=== PATIENT | female | born 1945 | race Caucasian/White ===

== ENCOUNTER 2018-05-26 13:27 | Inpatient (IN) | payer MEDICARE, OTHER, MEDICAID ==
[2018-05-26 14:02] LABS: ADD MAN DIFF? NO
[2018-05-26 14:07] LABS: WHITE BLOOD COUNT 14.8 10^3/ul (4.8-10.8)
[2018-05-26 14:07] LABS: BASOPHIL # 0.1 10^3/ul (0.0-0.1); BASOPHILS % 0.3 % (0.0-2.0); EOSINOPHILS % 0.1 % (0.0-7.0); HEMATOCRIT 45.9 % (37.0-47.0); HEMOGLOBIN 14.9 g/dl (12.0-16.0); LYMPHOCYTES % 6.7 % (15.0-51.0); MEAN CORPUSCULAR HEMOGLOBIN 29.4 pg (29.0-33.0); MEAN CORPUSCULAR HGB CONC 32.5 g/dl (32.0-37.0); MEAN CORPUSCULAR VOLUME 90.7 fl (82.0-101.0); MEAN PLATELET VOLUME 11.3 fl (7.4-10.4); MONOCYTE # 1.1 10^3/ul (0.3-0.9); MONOCYTES % 7.2 % (0.0-11.0); NEUTROPHIL # 12.6 10^3/ul (1.6-7.5); NEUTROPHILS % 85.3 % (39.0-77.0); PLATELET COUNT 419 10^3/UL (140-415); RED BLOOD COUNT 5.06 10^6/ul (4.20-5.40); RED CELL DISTRIBUTION WIDTH 17.5 % (11.5-14.5)
[2018-05-26] MEDS: ACETAMINOPHEN 650 MG SUPP PR (14:14)
[2018-05-26] MEDS: SODIUM CHLORIDE 0.9% 1L BAG IV* (14:14)
[2018-05-26 14:26] LABS: INR 1.11; PROTIME 14.5 Sec (11.9-14.9); PT RATIO 1.1
[2018-05-26 14:38] LABS: CREATINE KINASE 217 IU/L (23-200)
[2018-05-26 14:45] LABS: LACTIC ACID 2.6 mmol/L (0.5-2.0)
[2018-05-26 14:46] LABS: ETHANOL < 10.0 mg/dl; SALICYLATE < 1.0 mg/dl (5.0-30.0)
[2018-05-26 14:49] LABS: TROPONIN-I 0.017 ng/ml (0.000-0.120)
[2018-05-26 14:54] LABS: ALANINE AMINOTRANSFERASE 20 IU/L (13-69); ALBUMIN 5.2 g/dl (3.3-4.9); ALBUMIN/GLOBULIN RATIO 1.26; ALKALINE PHOSPHATASE 94 IU/L (42-121); ANION GAP 34 (8-16); ASPARTATE AMINO TRANSFERASE 22 IU/L (15-46); BILIRUBIN,INDIRECT 0.5 mg/dl (0-1.1); BILIRUBIN,TOTAL 0.5 mg/dl (0.2-1.3); BLOOD UREA NITROGEN 84 mg/dl (7-20); CALCIUM 9.3 mg/dl (8.4-10.2); CARBON DIOXIDE 10 mmol/L (21-31); CHLORIDE 105 mmol/L (97-110); CREATININE 12.42 mg/dl (0.44-1.00); GLUCOSE 202 mg/dl (70-220); SODIUM 143 mmol/L (135-144); TOTAL PROTEIN 9.3 g/dl (6.1-8.1)
[2018-05-26 14:59] LABS: POTASSIUM 5.7 mmol/L (3.5-5.1)
[2018-05-26 15:08] LABS: ACETAMINOPHEN < 10.0 ug/ml (10.0-30.0)
[2018-05-26] MEDS ORDERED: DEXTROSE 50% 50 ML SYRINGE IV ×3 (15:30→20:30)
[2018-05-26] MEDS: ALBUTEROL 0.5% (NEB) 2.5 MG/0.5 ML AMP INH (15:42)
[2018-05-26] MEDS: DEXTROSE 50% 50 ML SYRINGE IV (15:44)
[2018-05-26] MEDS: INSULIN REGULAR, HUMAN 100 UNIT/1 ML 3ML VIAL IVP (15:44)
[2018-05-26] MEDS: PIPER-TAZO 2.25 GM (PMX) 50 ML IVPB ×2 (15:49→21:02)
[2018-05-26] MEDS: VANCOMYCIN 1 GM (PMX) 250 ML IVPB (16:07)
[2018-05-26 16:29] LABS: PARTIAL THROMBOPLASTIN TIME 30.7 Sec (25.0-35.0)
[2018-05-26] MEDS ORDERED: VANCOMYCIN IV PER PHARMACY XX (17:00)
[2018-05-26] MEDS: LIDOCAINE 1% (MPF) 5 ML VIAL SC (17:00)
[2018-05-26] MEDS ORDERED: NACL 0.9% 3 ML SYG IV (17:30)
[2018-05-26 17:39] LABS: LACTIC ACID 4.5 mmol/L (0.5-2.0)
[2018-05-26 17:44] LABS: ANION GAP 23 (8-16); BLOOD UREA NITROGEN 77 mg/dl (7-20); CALCIUM 7.3 mg/dl (8.4-10.2); CARBON DIOXIDE 12 mmol/L (21-31); CHLORIDE 115 mmol/L (97-110); CREATININE 10.71 mg/dl (0.44-1.00); GLUCOSE 114 mg/dl (70-220); POTASSIUM 5.1 mmol/L (3.5-5.1); SODIUM 145 mmol/L (135-144)
[2018-05-26 17:52] LABS: URIC ACID 13.3 mg/dl (3.1-7.9)
[2018-05-26 17:52] LABS: CREATINE KINASE 257 IU/L (23-200)
[2018-05-26 17:55] LABS: URINE PH (Dip) POC 5.5 (5.0-8.5)
[2018-05-26 17:55] LABS: URINE BLOOD (Dip) POC 2+ (NEGATIVE); URINE KETONES (Dip) POC 1+ (NEGATIVE); URINE LEUKOCYTE EST (Dip) POC Trace (NEGATIVE); URINE NITRITE (Dip) POC Negative (NEGATIVE); URINE TOTAL PROTEIN POC 2+ (NEGATIVE)
[2018-05-26] MEDS: NALOXONE (0.4 MG/ML) INJ IV (17:59)
[2018-05-26] MEDS: SOD CHLORIDE 0.9% 1,000 ML IV (17:59)
[2018-05-26 18:02] LABS: AADO2 Arterial 21.2 mmHg (7.0-24.0); Allen Test ACCEPTAB; Arterial Base Excess -14.4 mmol/L (-3.0-3); Arterial Blood Gas Oxygen Sat 94.7 mmHG (95.0-98.0); Arterial COHb 0.2 % (0.0-3.0); Arterial Fraction of Oxyhgb 94.1 % (93.0-99.0); Arterial HCO3 12.6 mmol/L (22.0-26.0); Arterial MetHb 0.4 % (0.0-1.5); Arterial Total Hemglobin 12.9 g/dl (12.0-18.0); Arterial pCO2 33.6 mmhg (35-45); MODE ROOM AIR; Site Right Radial
[2018-05-26 18:22] LABS: BARBITURATES Negative (NEGATIVE); BENZODIAZEPINES Negative (NEGATIVE); CANNABINOIDS Negative (NEGATIVE); COCAINE Negative (NEGATIVE); OPIATES Negative (NEGATIVE)
[2018-05-26 18:29] LABS: AMPHETAMINE/METHAMPHETAMINE Positive (NEGATIVE)
[2018-05-26 18:40] LABS: LACTIC ACID 2.2 mmol/L (0.5-2.0)
[2018-05-26] MEDS: SOD CHLORIDE 0.45% 1,000 ML IV (19:01)
[2018-05-26 19:17] LABS: CREATININE,URINE RANDOM 359.44 mg/dl (20-320); PROTEIN/CREAT RATIO 0.53 RATIO
[2018-05-26 19:43] LABS: SODIUM,URINE RANDOM 36 mmol/L (30-90)
[2018-05-26] MEDS ORDERED: GLUCOSE GEL 15 GRAM TUBE PO ×2 (20:30)
[2018-05-26] MEDS ORDERED: GLUCOSE GEL 15 GRAM TUBE BUCCAL (20:30)
[2018-05-26] MEDS ORDERED: GLUCAGON 1 MG INJ IM (20:30)
[2018-05-26] MEDS: HEPARIN 5,000 UNIT/0.5 ML VIAL SC (20:53)
[2018-05-26] MEDS: INSULIN ASPART [NOVOLOG] 3 ML PEN SC (21:00)
[2018-05-26] MEDS: SODIUM BICARBONATE (IV ADD) 100 MEQ in SOD CHLORIDE 0.45% 1,000 ML IV (21:43)
[2018-05-27] MEDS: NORepinephrine 8MG/250 ML (PMX 250 ML IV (00:36)
[2018-05-27] MEDS: INSULIN ASPART [NOVOLOG] 3 ML PEN SC ×6 (01:00→21:12)
[2018-05-27 05:05] LABS: WHITE BLOOD COUNT 12.1 10^3/ul (4.8-10.8)
[2018-05-27 05:05] LABS: ABNORMAL IP MESSAGE 1; HEMATOCRIT 40.6 % (37.0-47.0); HEMOGLOBIN 12.8 g/dl (12.0-16.0); MEAN CORPUSCULAR HGB CONC 31.5 g/dl (32.0-37.0); MEAN CORPUSCULAR VOLUME 92.1 fl (82.0-101.0); PLATELET COUNT 263 10^3/UL (140-415); RED BLOOD COUNT 4.41 10^6/ul (4.20-5.40); RED CELL DISTRIBUTION WIDTH 17.4 % (11.5-14.5)
[2018-05-27 05:20] LABS: ADD MAN DIFF? YES; POSITIVE DIFF @See below
[2018-05-27 05:20] LABS: HEMOGLOBIN A1C 6.7 % (0-5.9)
[2018-05-27 05:33] LABS: IRON 27 ug/dl (35-150)
[2018-05-27 05:35] LABS: ALANINE AMINOTRANSFERASE 14 IU/L (13-69); ALBUMIN/GLOBULIN RATIO 1.21; ALKALINE PHOSPHATASE 70 IU/L (42-121); ANION GAP 21 (8-16); ASPARTATE AMINO TRANSFERASE 16 IU/L (15-46); BLOOD UREA NITROGEN 87 mg/dl (7-20); CALCIUM 7.8 mg/dl (8.4-10.2); CARBON DIOXIDE 15 mmol/L (21-31); CHLORIDE 115 mmol/L (97-110); CREATININE 9.47 mg/dl (0.44-1.00); GLUCOSE 107 mg/dl (70-220); MAGNESIUM 2.4 mg/dl (1.7-2.5); PHOSPHORUS 8.3 mg/dl (2.5-4.9); POTASSIUM 4.4 mmol/L (3.5-5.1); SODIUM 147 mmol/L (135-144); TOTAL PROTEIN 7.3 g/dl (6.1-8.1)
[2018-05-27 05:42] LABS: % IRON SATURATION 10 % SAT (22-52); TOTAL IRON BINDING CAPACITY 280 ug/dl (241-421)
[2018-05-27] MEDS: PIPER-TAZO 2.25 GM (PMX) 50 ML IVPB ×3 (05:56→21:10)
[2018-05-27] MEDS: PANTOPRAZOLE 40 MG INJ IV (05:56)
[2018-05-27 05:58] LABS: RETICULOCYTE COUNT # 0.056 X10^6 (0.020-0.110); RETICULOCYTE COUNT % 1.3 % (0.5-1.5)
[2018-05-27 05:58] LABS: RETICULOCYTE RBC 4.35
[2018-05-27] MEDS: SODIUM BICARBONATE (IV ADD) 100 MEQ in SOD CHLORIDE 0.45% 1,000 ML IV ×2 (08:55→19:45)
[2018-05-27] MEDS: HEPARIN 5,000 UNIT/0.5 ML VIAL SC ×2 (09:23→21:22)
[2018-05-27 09:26] LABS: BAND NEUTROPHILS #M 4.1 10^3/ul (0.0-0.6); BAND NEUTROPHILS % (M) 34 % (0-4); LYMPHOCYTES #M 2.4 10^3/ul (0.8-2.9); LYMPHOCYTES % (M) 20 % (15-51); MONOCYTE #M 1.6 10^3/ul (0.3-0.9); MONOCYTES % (M) 14 % (0-11); PLATELET ESTIMATE NORMAL; POIKILOCYTOSIS 1+ (0-0); REACTIVE LYMPHOCYTES #M 0.3 10^3/ul (0.0-0.0); REACTIVE LYMPHOCYTES% (M) 3 % (0-0); SEGMENTED NEUTROPHILS (M) % 29 % (39-77); SMUDGE%M 28 % (0-0)
[2018-05-27 11:21] LABS: AADO2 Arterial 17.9 mmHg (7.0-24.0); Allen Test ACCEPTAB; Arterial Base Excess -8.6 mmol/L (-3.0-3); Arterial Blood Gas Oxygen Sat 96.6 mmHG (95.0-98.0); Arterial COHb 0.5 % (0.0-3.0); Arterial Fraction of Oxyhgb 95.9 % (93.0-99.0); Arterial HCO3 16.3 mmol/L (22.0-26.0); Arterial MetHb 0.2 % (0.0-1.5); Arterial Total Hemglobin 13.1 g/dl (12.0-18.0); Arterial pCO2 32.2 mmhg (35-45); MODE ROOM AIR; Site Right Radial
[2018-05-27] MEDS: COLLAGENASE 5 GM (UD JAR) TOP (16:00)
[2018-05-27] MEDS: SODIUM HYPOCHLORITE 0.125% 473 ML BTL IRR (16:00)
[2018-05-27] MEDS: ALLOPURINOL 100 MG TAB PO (18:52)
[2018-05-27] MEDS: LIDOCAINE 1% (MPF) 5 ML VIAL SC (19:14)
[2018-05-28] MEDS: INSULIN ASPART [NOVOLOG] 3 ML PEN SC ×5 (01:00→17:00)
[2018-05-28 05:38] LABS: HEMOGLOBIN 10.7 g/dl (12.0-16.0); MEAN CORPUSCULAR HEMOGLOBIN 28.9 pg (29.0-33.0); MEAN CORPUSCULAR HGB CONC 32.4 g/dl (32.0-37.0); MEAN CORPUSCULAR VOLUME 89.2 fl (82.0-101.0); MEAN PLATELET VOLUME 10.8 fl (7.4-10.4); PLATELET COUNT 229 10^3/UL (140-415)
[2018-05-28 05:38] LABS: WHITE BLOOD COUNT 9.7 10^3/ul (4.8-10.8)
[2018-05-28 05:57] LABS: ADD MAN DIFF? YES; POSITIVE DIFF @See below
[2018-05-28 06:10] LABS: ALANINE AMINOTRANSFERASE 21 IU/L (13-69); ALBUMIN 3.1 g/dl (3.3-4.9); ALBUMIN/GLOBULIN RATIO 1.03; ALKALINE PHOSPHATASE 59 IU/L (42-121); ANION GAP 12 (8-16); ASPARTATE AMINO TRANSFERASE 18 IU/L (15-46); BILIRUBIN,INDIRECT 0.1 mg/dl (0-1.1); BILIRUBIN,TOTAL 0.1 mg/dl (0.2-1.3); BLOOD UREA NITROGEN 71 mg/dl (7-20); CALCIUM 8.1 mg/dl (8.4-10.2); CARBON DIOXIDE 22 mmol/L (21-31); CHLORIDE 114 mmol/L (97-110); CREATININE 3.51 mg/dl (0.44-1.00); GLUCOSE 89 mg/dl (70-220); POTASSIUM 3.8 mmol/L (3.5-5.1); SODIUM 144 mmol/L (135-144); TOTAL PROTEIN 6.1 g/dl (6.1-8.1)
[2018-05-28] MEDS: PANTOPRAZOLE 40 MG INJ IV (06:57)
[2018-05-28] MEDS: SODIUM BICARBONATE (IV ADD) 100 MEQ in SOD CHLORIDE 0.45% 1,000 ML IV ×2 (06:57→18:05)
[2018-05-28] MEDS: PIPER-TAZO 2.25 GM (PMX) 50 ML IVPB ×4 (06:57→23:06)
[2018-05-28 08:10] LABS: BAND NEUTROPHILS #M 2.5 10^3/ul (0.0-0.6); BAND NEUTROPHILS % (M) 26 % (0-4); EOSINOPHILS % (M) 8 % (0-7); LYMPHOCYTES % (M) 21 % (15-51); METAMYELOCYTES %M 1 % (0-0); MONOCYTE #M 0.5 10^3/ul (0.3-0.9); MONOCYTES % (M) 6 % (0-11); MYELOCYTES % (M) 1 % (0-0); PLATELET ESTIMATE NORMAL; POLYCHROMASIA 2+ (0-0); REACTIVE LYMPHOCYTES #M 0.5 10^3/ul (0.0-0.0); REACTIVE LYMPHOCYTES% (M) 6 % (0-0); SEG NEUT #M 3.2 10^3/ul (1.6-7.5); SEGMENTED NEUTROPHILS (M) % 31 % (39-77); SMUDGE%M 19 % (0-0); SPHEROCYTES 1+ (0-0)
[2018-05-28] MEDS: SODIUM HYPOCHLORITE 0.125% 473 ML BTL IRR (09:19)
[2018-05-28] MEDS: ALLOPURINOL 100 MG TAB PO (09:19)
[2018-05-28] MEDS: HEPARIN 5,000 UNIT/0.5 ML VIAL SC ×2 (09:20→21:28)
[2018-05-28] MEDS: COLLAGENASE 5 GM (UD JAR) TOP (09:21)
[2018-05-28] MEDS: VANCOMYCIN 1 GM 250 ML IVPB (13:27)
[2018-05-28] MEDS ORDERED: hydrALAzine 20 MG INJ IV (20:00)
[2018-05-28] MEDS: Insulin NOVOLOG SS MILD Algorithm (SS with meals and bedtime) SC (21:00)
[2018-05-28] MEDS ORDERED: INSULIN ASPART [NOVOLOG] 3 ML PEN SC (21:00)
[2018-05-29] MEDS: ACCUCHECK AT 2AM (Patients on SS coverage) XX (01:51)
[2018-05-29] MEDS: SODIUM BICARBONATE (IV ADD) 100 MEQ in SOD CHLORIDE 0.45% 1,000 ML IV ×4 (04:00→17:53)
[2018-05-29] MEDS: PIPER-TAZO 2.25 GM (PMX) 50 ML IVPB ×2 (06:10→14:29)
[2018-05-29] MEDS: PANTOPRAZOLE 40 MG INJ IV (06:10)
[2018-05-29] MEDS: Insulin NOVOLOG SS MILD Algorithm (SS with meals and bedtime) SC ×4 (08:00→20:39)
[2018-05-29] MEDS: COLLAGENASE 5 GM (UD JAR) TOP (09:45)
[2018-05-29] MEDS: ALLOPURINOL 100 MG TAB PO (09:45)
[2018-05-29] MEDS: HEPARIN 5,000 UNIT/0.5 ML VIAL SC ×2 (09:48→20:39)
[2018-05-29] MEDS: SODIUM HYPOCHLORITE 0.125% 473 ML BTL IRR (10:30)
[2018-05-29 12:03] LABS: ADD MAN DIFF? NO
[2018-05-29 12:07] LABS: WHITE BLOOD COUNT 7.4 10^3/ul (4.8-10.8)
[2018-05-29 12:07] LABS: BASOPHILS % 0.4 % (0.0-2.0); EOSINOPHILS # 0.2 10^3/ul (0.0-0.5); HEMATOCRIT 31.7 % (37.0-47.0); HEMOGLOBIN 10.2 g/dl (12.0-16.0); LYMPHOCYTES # 1.5 10^3/ul (0.8-2.9); LYMPHOCYTES % 20.8 % (15.0-51.0); MEAN CORPUSCULAR HEMOGLOBIN 29.1 pg (29.0-33.0); MEAN CORPUSCULAR HGB CONC 32.2 g/dl (32.0-37.0); MEAN CORPUSCULAR VOLUME 90.6 fl (82.0-101.0); MEAN PLATELET VOLUME 10.3 fl (7.4-10.4); MONOCYTE # 0.7 10^3/ul (0.3-0.9); MONOCYTES % 9.7 % (0.0-11.0); NEUTROPHIL # 4.9 10^3/ul (1.6-7.5); NEUTROPHILS % 65.9 % (39.0-77.0); PLATELET COUNT 205 10^3/UL (140-415); RED CELL DISTRIBUTION WIDTH 16.6 % (11.5-14.5)
[2018-05-29 12:29] LABS: ANION GAP 12 (8-16); BLOOD UREA NITROGEN 37 mg/dl (7-20); CALCIUM 8.2 mg/dl (8.4-10.2); CARBON DIOXIDE 29 mmol/L (21-31); CHLORIDE 107 mmol/L (97-110); CREATININE 1.43 mg/dl (0.44-1.00); GLUCOSE 125 mg/dl (70-220); POTASSIUM 3.6 mmol/L (3.5-5.1); SODIUM 144 mmol/L (135-144)
[2018-05-30] MEDS: ACCUCHECK AT 2AM (Patients on SS coverage) XX (01:03)
[2018-05-30] MEDS: PANTOPRAZOLE 40 MG INJ IV (05:46)
[2018-05-30 06:34] LABS: ANION GAP 9 (8-16); BLOOD UREA NITROGEN 29 mg/dl (7-20); CALCIUM 8.6 mg/dl (8.4-10.2); CARBON DIOXIDE 32 mmol/L (21-31); CHLORIDE 108 mmol/L (97-110); CREATININE 1.33 mg/dl (0.44-1.00); GLUCOSE 98 mg/dl (70-220); POTASSIUM 3.9 mmol/L (3.5-5.1); SODIUM 145 mmol/L (135-144)
[2018-05-30] MEDS: Insulin NOVOLOG SS MILD Algorithm (SS with meals and bedtime) SC ×4 (07:50→21:00)
[2018-05-30] MEDS: SODIUM HYPOCHLORITE 0.125% 473 ML BTL IRR (09:00)
[2018-05-30] MEDS: NEOMYC/POLYMYX/BACIT 30 GM OINT TOP ×2 (09:00→21:09)
[2018-05-30] MEDS: ALLOPURINOL 100 MG TAB PO (09:05)
[2018-05-30] MEDS: HEPARIN 5,000 UNIT/0.5 ML VIAL SC ×2 (09:07→21:10)
[2018-05-30] MEDS: AMLODIPINE 5 MG TAB PO (12:43)
[2018-05-30] MEDS: ACETAMINOPHEN 650MG/20.3ML CUP GTB (23:14)
[2018-05-31] MEDS: ACCUCHECK AT 2AM (Patients on SS coverage) XX (01:20)
[2018-05-31] MEDS: Insulin NOVOLOG SS MILD Algorithm (SS with meals and bedtime) SC ×2 (07:57→12:00)
[2018-05-31] MEDS: ALLOPURINOL 100 MG TAB PO (08:28)
[2018-05-31] MEDS: AMLODIPINE 5 MG TAB PO (08:29)
[2018-05-31] MEDS: HEPARIN 5,000 UNIT/0.5 ML VIAL SC (08:32)
[2018-05-31] MEDS: SODIUM HYPOCHLORITE 0.125% 473 ML BTL IRR (09:00)
[2018-05-31] MEDS: NEOMYC/POLYMYX/BACIT 30 GM OINT TOP (09:00)
[2018-05-31] MEDS: OXYCODONE/ACETAMINOPHEN (5/325) TAB PO (13:38)
== END 2018-05-31 16:20 | disposition home or self-care (01) | DRG 871 ==
LOC: E/R 13:27 → MS2 05-28 15:15 → ICU 18:40
PROC: 02HV33Z Insertion of Infusion Device into Superior Vena Cava, Percutaneous Approach (ICD-10-PCS; principal; 2018-05-27)
PROC: B548ZZA Ultrasonography of Superior Vena Cava, Guidance (ICD-10-PCS; 2018-05-27)
DX: A41.9 Sepsis, unspecified organism (principal); G93.41 Metabolic encephalopathy; N17.0 Acute kidney failure with tubular necrosis; R65.21 Severe sepsis with septic shock; E87.2 Acidosis; E87.5 Hyperkalemia; E86.0 Dehydration; N18.9 Chronic kidney disease, unspecified; E79.0 Hyperuricemia without signs of inflammatory arthritis and tophaceous disease; Z59.0 Homelessness
CPT/HCPCS: 36415; 36569; 36600; 70450; 71045; 72125; 76775; 76937; 80048; 80053; 80202; 80307; 81003; 81025; 82550; 82570; 82728; 82803; 82962; 83036; 83540; 83605; 83735; 84100; 84300; 84443; 84484; 84560; 85025; 85045; 85610; 85730; 87040; 87070; 87081; 87086; 92526; 92610; 93005; 94664; 96374; 96375; 97110; 97161; 97530; 99291-25

== ENCOUNTER 2018-07-22 14:56 | Emergency (ER) | payer MEDICARE, OTHER, MEDICAID ==
[2018-07-22] MEDS: HYDROCODONE/APAP (10/325) TAB PO (15:32)
== END 2018-07-22 21:05 | disposition home or self-care (01) ==
LOC: E/R 14:56
DX: S80.11XA Contusion of right lower leg, initial encounter (principal); V03.10XA Pedestrian on foot injured in collision with car, pick-up truck or van in traffic accident, initial encounter; Z79.82 Long term (current) use of aspirin
CPT/HCPCS: 71045; 73550; 73552; 73562; 99284-25

== ENCOUNTER 2018-07-23 00:04 | Emergency (ER) | payer MEDICARE, OTHER | END 2018-07-23 12:17 | disposition home or self-care (01) | LOC: E/R 00:04 | DX: R52 Pain, unspecified (principal); N17.9 Acute kidney failure, unspecified; Z79.82 Long term (current) use of aspirin; Z79.84 Long term (current) use of oral hypoglycemic drugs | CPT/HCPCS: 99282 ==